=== PATIENT | female | born 1945 | race Two or more races ===

== ENCOUNTER 2017-03-13 18:00 | Inpatient (IN) | payer MEDICAID, MEDICARE, OTHER ==
[~2017-03-13] VITALS: Ht 154.9 cm; Wt 36.0 kg
[2017-03-13] MEDS ORDERED: AZITHROMYCIN IV 500 MG in IV DEXTROSE 5% 250 ML IV ONE (19:00)
[2017-03-13 19:34] LABS: CARBON DIOXIDE 24 mmol/L (21-32); CHLORIDE 94 mmol/L (98-107); GLUCOSE 97 mg/dL (74-106); POTASSIUM 4.7 mmol/L (3.5-5.1); UREA NITROGEN, BLOOD 32 mg/dL (7-18)
[2017-03-13 19:38] LABS: BASOPHILS # (AUTO) 0.1 K/uL (0.0-8.0); BASOPHILS % (AUTO) 0.4 % (0.0-2.0); EOSINOPHILS # (AUTO) 0.1 K/uL (0.0-0.7); EOSINOPHILS % (AUTO) 0.3 % (0.0-7.0); HEMATOCRIT 37.5 % (37-47); HEMOGLOBIN 12.1 G/DL (12.0-16.0); LYMPHOCYTES # (AUTO) 0.9 K/UL (0.8-4.8); LYMPHOCYTES % (AUTO) 4.2 % (20.5-51.5); MEAN CORPUSCULAR HEMOGLOBIN 27.7 UUG (27.0-31.0); MEAN CORPUSCULAR HGB CONC 32 g/dL (32.0-37.0); MEAN CORPUSCULAR VOLUME 85.9 FL (81.0-99.0); MONOCYTES # (AUTO) 0.4 K/UL (0.1-1.30); MONOCYTES % (AUTO) 2.1 % (0.0-11.0); NEUTROPHILS # (AUTO) 19.3 K/UL (1.8-8.9); PLATELET COUNT (AUTO) 508 K/UL (150-450); RED BLOOD CELL COUNT(AUTO) 4.36 MIL/UL (4.2-5.4)
[2017-03-13] MEDS ORDERED: AZITHROMYCIN 500 MG VIAL IV ONE (19:39)
[2017-03-13 19:45] LABS: WHITE BLOOD COUNT (AUTO) 20.8 K/UL (4.0-11.2)
[2017-03-13 19:50] LABS: ALANINE AMINOTRANSFERASE 24 U/L (14-59); ALKALINE PHOSPHATASE 141 U/L (50-136); ASPARTATE AMINOTRANSFERASE 27 U/L (15-37); BILIRUBIN,DIRECT 0.2 mg/dL (0.0-0.2); BILIRUBIN,TOTAL 0.5 mg/dL (0.2-1.0); TOTAL PROTEIN, SERUM 6.9 g/dL (6.4-8.2)
[2017-03-13 20:19] LABS: BAND % (MANUAL) 13 % (0-10); LYMPHOCYTES % (MANUAL) 7 % (20-40); MONOCYTES % (MANUAL) 2 % (2-10); NEUTROPHILS % (MANUAL) 78 % (42-75)
[2017-03-13] MEDS ORDERED: IV NORMAL SALINE 250 ML IV ONE (22:10)
[2017-03-13] MEDS ORDERED: IOHEXOL 350 100 ML INFUS..BTL ONE (22:10)
[2017-03-13] MEDS ORDERED: NORMAL SALINE FLUSH 10 ML DISP.SYRIN ONE (22:10)
[2017-03-13] MEDS ORDERED: ENOXAPARIN SODIUM 40 MG/0.4 ML DISP.SYRIN SQ ONE ×2 (22:15→22:52)
[2017-03-13 22:55] VITALS: BP 94/47
[2017-03-14] VITALS: BP 97/52
[2017-03-14] MEDS ORDERED: LEVOFLOXACIN 500 MG/D5W 500 MG in PREMIXED 1 EACH IV SCH (01:00)
[2017-03-14] MEDS: IV D5/ 0.9% NACL 1,000 ML IV PRN ×2 (01:22→20:05)
[2017-03-14] MEDS ORDERED: LEVOFLOXACIN 500 MG/D5W 100 ML ONE (02:12)
[2017-03-14 04:00] VITALS: BP 92/50
[2017-03-14 07:16] LABS: ALANINE AMINOTRANSFERASE 22 U/L (14-59); ALKALINE PHOSPHATASE 131 U/L (50-136); ASPARTATE AMINOTRANSFERASE 29 U/L (15-37); BILIRUBIN,TOTAL 0.4 mg/dL (0.2-1.0); CARBON DIOXIDE 23 mmol/L (21-32); CHLORIDE 96 mmol/L (98-107); CREATININE 0.9 mg/dL (0.6-1.3); GLUCOSE 145 mg/dL (74-106); MAGNESIUM 2.2 mg/dL (1.8-2.4); PHOSPHOROUS 3.2 mg/dL (2.5-4.9); POTASSIUM 4.2 mmol/L (3.5-5.1); UREA NITROGEN, BLOOD 29 mg/dL (7-18)
[2017-03-14 07:49] LABS: BASOPHILS % (AUTO) 0.1 % (0.0-2.0); EOSINOPHILS # (AUTO) 0.1 K/uL (0.0-0.7); EOSINOPHILS % (AUTO) 0.6 % (0.0-7.0); HEMATOCRIT 33.8 % (37-47); HEMOGLOBIN 11.2 G/DL (12.0-16.0); MEAN CORPUSCULAR HEMOGLOBIN 28.5 UUG (27.0-31.0); MEAN CORPUSCULAR HGB CONC 33 g/dL (32.0-37.0); MEAN CORPUSCULAR VOLUME 86.2 FL (81.0-99.0); MONOCYTES # (AUTO) 0.7 K/UL (0.1-1.30); MONOCYTES % (AUTO) 3.9 % (0.0-11.0); NEUTROPHILS # (AUTO) 15.2 K/UL (1.8-8.9); NEUTROPHILS % (AUTO) 89.4 % (38.5-71.5); PLATELET COUNT (AUTO) 480 K/UL (150-450); RED BLOOD CELL COUNT(AUTO) 3.93 MIL/UL (4.2-5.4)
[2017-03-14] MEDS ORDERED: ACETAMINOPHEN 325 MG TABLET PO PRN (09:15)
[2017-03-14] MEDS ORDERED: ENOXAPARIN SODIUM 40 MG/0.4 ML DISP.SYRIN SQ SCH (09:30)
[2017-03-14] MEDS ORDERED: LEVO50TA8 PO (10:01)
[2017-03-14 10:45] LABS: BAND % (MANUAL) 9 % (0-10); EOSINOPHILS % (MANUAL) 1 % (0-8); LYMPHOCYTES % (MANUAL) 7 % (20-40); METAMYELOCYTES % 1 % (0-1); MONOCYTES % (MANUAL) 4 % (2-10); NEUTROPHILS % (MANUAL) 78 % (42-75)
[2017-03-14 10:50] LABS: CARBON DIOXIDE 26 mmol/L (21-32); CHLORIDE 97 mmol/L (98-107); CREATININE 0.8 mg/dL (0.6-1.3); GLUCOSE 135 mg/dL (74-106); MAGNESIUM 2.2 mg/dL (1.8-2.4); PHOSPHOROUS 3.2 mg/dL (2.5-4.9); POTASSIUM 4.5 mmol/L (3.5-5.1); UREA NITROGEN, BLOOD 27 mg/dL (7-18); URIC ACID 3.9 mg/dL (2.6-6.0)
[2017-03-14] MEDS: ENOXAPARIN SODIUM 40 MG/0.4 ML DISP.SYRIN SQ SCH ×2 (10:54→20:52)
[2017-03-14 10:58] LABS: THYROID STIMULATING HORMONE 10.067 mIU/mL (0.358-3.740)
[2017-03-14] MEDS: BENZOCAINE/MENTH/CETYLPYRD LOZENGE MM PRN (10:59)
[2017-03-14 11:33] VITALS: BP 116/52
[2017-03-14 15:52] VITALS: BP 95/51
[2017-03-15] MEDS: LEVOFLOXACIN 250MG /D5W 250 MG in PREMIXED 1 EACH IV SCH (01:22)
[2017-03-15] MEDS: PANTOPRAZOLE SODIUM 40 MG TABLET.DR PO SCH (06:08)
[2017-03-15] MEDS: LEVOTHYROXINE SODIUM 50 MCG TABLET PO SCH (06:08)
[2017-03-15 06:36] LABS: CARBON DIOXIDE 23 mmol/L (21-32); CHLORIDE 103 mmol/L (98-107); CREATININE 0.8 mg/dL (0.6-1.3); GLUCOSE 106 mg/dL (74-106); PHOSPHOROUS 3.3 mg/dL (2.5-4.9); POTASSIUM 3.8 mmol/L (3.5-5.1); UREA NITROGEN, BLOOD 19 mg/dL (7-18)
[2017-03-15 06:58] LABS: EOSINOPHILS # (AUTO) 0.2 K/uL (0.0-0.7); EOSINOPHILS % (AUTO) 1.6 % (0.0-7.0); HEMATOCRIT 34.6 % (37-47); HEMOGLOBIN 11.2 G/DL (12.0-16.0); LYMPHOCYTES # (AUTO) 1.1 K/UL (0.8-4.8); LYMPHOCYTES % (AUTO) 8.2 % (20.5-51.5); MEAN CORPUSCULAR HEMOGLOBIN 28.3 UUG (27.0-31.0); MEAN CORPUSCULAR HGB CONC 32 g/dL (32.0-37.0); MEAN CORPUSCULAR VOLUME 87.3 FL (81.0-99.0); MONOCYTES # (AUTO) 0.7 K/UL (0.1-1.30); MONOCYTES % (AUTO) 5.3 % (0.0-11.0); NEUTROPHILS # (AUTO) 10.9 K/UL (1.8-8.9); NEUTROPHILS % (AUTO) 84.9 % (38.5-71.5); PLATELET COUNT (AUTO) 472 K/UL (150-450); RED BLOOD CELL COUNT(AUTO) 3.97 MIL/UL (4.2-5.4); WHITE BLOOD COUNT (AUTO) 12.9 K/UL (4.0-11.2)
[2017-03-15] MEDS: ENOXAPARIN SODIUM 40 MG/0.4 ML DISP.SYRIN SQ SCH ×2 (08:42→21:17)
[2017-03-15 12:06] VITALS: BP 90/52
[2017-03-15] MEDS: IV D5/ 0.9% NACL 1,000 ML IV PRN (12:17)
[2017-03-15 16:04] VITALS: BP 109/65
[2017-03-15 20:00] VITALS: BP 105/64
[2017-03-16] VITALS: BP 100/52
[2017-03-16] MEDS: NYSTATIN SUSPENSION 5 ML LIQUID UDC PO SCH ×3 (00:43→12:06)
[2017-03-16] MEDS: LEVOFLOXACIN 250MG /D5W 250 MG in PREMIXED 1 EACH IV SCH (00:44)
[2017-03-16 04:00] VITALS: BP 96/57
[2017-03-16] MEDS: LEVOTHYROXINE SODIUM 50 MCG TABLET PO SCH (05:57)
[2017-03-16] MEDS: PANTOPRAZOLE SODIUM 40 MG TABLET.DR PO SCH (05:57)
[2017-03-16 07:07] LABS: BASOPHILS % (AUTO) 0.2 % (0.0-2.0); EOSINOPHILS # (AUTO) 0.2 K/uL (0.0-0.7); EOSINOPHILS % (AUTO) 2.1 % (0.0-7.0); HEMATOCRIT 33.7 % (31.2-41.9); HEMOGLOBIN 11.1 g/dL (10.9-14.3); LYMPHOCYTES # (AUTO) 1.3 K/uL (20.0-40.0); LYMPHOCYTES % (AUTO) 11.3 % (20.5-51.5); MEAN CORPUSCULAR HEMOGLOBIN 28.8 uug (24.7-32.8); MEAN CORPUSCULAR HGB CONC 33 g/dL (32.3-35.6); MEAN CORPUSCULAR VOLUME 87.3 fL (75.5-95.3); MONOCYTES # (AUTO) 0.7 K/uL (2.0-10.0); NEUTROPHILS # (AUTO) 9.4 K/uL (1.8-8.9); NEUTROPHILS % (AUTO) 80.4 % (38.5-71.5); PLATELET COUNT (AUTO) 435 K/uL (179-408); RED BLOOD CELL COUNT(AUTO) 3.86 MIL/uL (3.63-4.92); WHITE BLOOD COUNT (AUTO) 11.7 K/uL (3.8-11.8)
[2017-03-16 07:10] LABS: CARBON DIOXIDE 23 mmol/L (21-32); CHLORIDE 105 mmol/L (98-107); GLUCOSE 112 mg/dL (74-106); POTASSIUM 3.8 mmol/L (3.5-5.1); UREA NITROGEN, BLOOD 23 mg/dL (7-18)
[2017-03-16] MEDS: ENOXAPARIN SODIUM 40 MG/0.4 ML DISP.SYRIN SQ SCH (08:08)
[2017-03-16] MEDS: BOOST PLUS 237 ML LIQUID (VERY VANILLA) PO SCH ×2 (08:12→12:07)
[2017-03-16] MEDS: BENZOCAINE/MENTH/CETYLPYRD LOZENGE MM PRN (09:10)
[2017-03-16] MEDS ORDERED: RIVAROXABAN 15 MG TABLET PO SCH (10:45)
[2017-03-16 11:10] VITALS: BP 100/59
[2017-03-16] MEDS ORDERED: RIVA15TA PO (12:12)
[2017-03-16] MEDS ORDERED: LEVO75TA PO (12:12)
[2017-03-16] MEDS ORDERED: LEVO500T2 PO (12:12)
[2017-03-16 15:23] VITALS: BP 108/51
== END 2017-03-16 16:30 | disposition home or self-care (01) | DRG 871 ==
LOC: ER 18:03 → TELE 22:39
PROVIDERS: ADMIT Internal Medicine; ATTEND Internal Medicine
DX: A41.9 Sepsis, unspecified organism (principal); J15.9 Unspecified bacterial pneumonia; I26.99 Other pulmonary embolism without acute cor pulmonale; E43 Unspecified severe protein-calorie malnutrition; J47.0 Bronchiectasis with acute lower respiratory infection; I82.432 Acute embolism and thrombosis of left popliteal vein; M06.9 Rheumatoid arthritis, unspecified; D64.9 Anemia, unspecified; E87.1 Hypo-osmolality and hyponatremia; Z68.1 Body mass index [BMI] 19.9 or less, adult; E03.9 Hypothyroidism, unspecified; E86.9 Volume depletion, unspecified; R63.4 Abnormal weight loss; I25.10 Atherosclerotic heart disease of native coronary artery without angina pectoris
CPT/HCPCS: 36415; 70030-TC; 71010; 71275; 82533; 83605; 83735; 84100; 84300; 84443; 84550; 85025; 87040; 93005; A4663; J0456; J1650; J1956; J3490; J7042; J7050; J7060; Q9967

== ENCOUNTER 2017-10-07 11:24 | Inpatient (IN) | payer OTHER, MEDICAID ==
[~2017-10-07] VITALS: Ht 152.4 cm; Wt 44.0 kg
[~2017-10-07 11:24] MED LIST: LEVO500T2 PO; LEVO75TA PO; RIVA15TA PO
[2017-10-07] MEDS ORDERED: RIVA10TA PO (11:35)
[2017-10-07] MEDS ORDERED: VITAMIN B12 PO (11:35)
[2017-10-07] MEDS ORDERED: IV NORMAL SALINE 1000 ML BAG IV ONE ×2 (12:00→15:15)
[2017-10-07] MEDS ORDERED: LEVOFLOXACIN 500 MG/D5W 100ML PIGGYBACK IV ONE (12:00)
[2017-10-07] MEDS ORDERED: PIPERACILLIN SODIUM/TAZOBACTAM 3.375 G in IV DEXTROSE 5% 50 ML IV ONE (12:00)
[2017-10-07] MEDS ORDERED: LEVOFLOXACIN 500 MG/D5W 100 ML ONE (12:06)
[2017-10-07] MEDS ORDERED: PIPERACILLIN/TAZOBACTAM/D5W 50 ML IV ONE (12:06)
[2017-10-07 12:24] LABS: BASOPHILS # (AUTO) 0.1 K/uL (0.0-8.0); BASOPHILS % (AUTO) 0.2 % (0.0-2.0); EOSINOPHILS # (AUTO) 0.1 K/uL (0.0-0.7); EOSINOPHILS % (AUTO) 0.2 % (0.0-7.0); HEMATOCRIT 32.8 % (31.2-41.9); HEMOGLOBIN 10.7 g/dL (10.9-14.3); LYMPHOCYTES # (AUTO) 1.2 K/uL (20.0-40.0); LYMPHOCYTES % (AUTO) 4.3 % (20.5-51.5); MEAN CORPUSCULAR HEMOGLOBIN 23.6 uug (24.7-32.8); MEAN CORPUSCULAR HGB CONC 33 g/dL (32.3-35.6); MEAN CORPUSCULAR VOLUME 72.5 fL (75.5-95.3); MONOCYTES # (AUTO) 1.1 K/uL (2.0-10.0); MONOCYTES % (AUTO) 3.8 % (0.0-11.0); NEUTROPHILS % (AUTO) 91.5 % (38.5-71.5); PLATELET COUNT (AUTO) 434 K/uL (179-408); RED BLOOD CELL COUNT(AUTO) 4.52 MIL/uL (3.63-4.92); WHITE BLOOD COUNT (AUTO) 28.5 K/uL (3.8-11.8)
[2017-10-07 12:28] LABS: CARBON DIOXIDE 24 mmol/L (21-32); CHLORIDE 97 mmol/L (98-107); CREATININE 0.7 mg/dL (0.6-1.3); GLUCOSE 126 mg/dL (74-106); POTASSIUM 3.3 mmol/L (3.5-5.1); UREA NITROGEN, BLOOD 23 mg/dL (7-18)
[2017-10-07 12:41] LABS: ALANINE AMINOTRANSFERASE 29 U/L (14-59); ALKALINE PHOSPHATASE 183 U/L (50-136); ASPARTATE AMINOTRANSFERASE 37 U/L (15-37); BILIRUBIN,DIRECT 0.4 mg/dL (0.0-0.2); BILIRUBIN,TOTAL 0.8 mg/dL (0.2-1.0); TOTAL PROTEIN, SERUM 6.5 g/dL (6.4-8.2)
--- NOTE | 2017-10-07 13:10 | NUR ---
HOSPITAL TRAY AT BEDSIDE. PT FAMILY MEMBRE HELPING THE PT.
[2017-10-07] MEDS ORDERED: SWABABLE VALVE TRANSFER SET EA MC ONE (14:05)
[2017-10-07] MEDS ORDERED: IV NORMAL SALINE 100 ML ONE (14:05)
[2017-10-07] MEDS ORDERED: IOHEXOL 350 100 ML INFUS..BTL ONE (14:05)
[2017-10-07] MEDS ORDERED: NORMAL SALINE FLUSH 10 ML DISP.SYRIN ONE (14:05)
--- NOTE | 2017-10-07 15:50 | NUR ---
Pt trans to tele floor, NAD noted.
[2017-10-07 16:34] VITALS: BP 93/45
[2017-10-07 17:18] VITALS: BP 98/60
[2017-10-07] MEDS ORDERED: ALBUTEROL SULFATE 2.5 MG/ 0.5 ML NEBU NEB PRN (18:45)
[2017-10-07] MEDS ORDERED: PRAMOXINE RC PRN (18:45)
[2017-10-07] MEDS ORDERED: ACETAMINOPHEN 325 MG TABLET PO PRN (18:45)
[2017-10-07] MEDS ORDERED: ONDANSETRON 4 MG/2 ML VIAL IV PRN (18:45)
[2017-10-07] MEDS ORDERED: HYDROCORTISONE RC PRN (18:45)
[2017-10-07] MEDS ORDERED: ZOLPIDEM 5 MG TABLET PO PRN (19:45)
[2017-10-07 20:01] VITALS: BP 98/60
[2017-10-07] MEDS: RIVAROXABAN 10 MG TABLET PO SCH (20:36)
[2017-10-08] VITALS (7 sets, daily range): BP systolic 92–102; BP diastolic 41–58
[2017-10-08] MEDS: LEVOTHYROXINE SODIUM 75 MCG TABLET PO SCH (06:11)
[2017-10-08 06:19] LABS: BASOPHILS % (AUTO) 0.2 % (0.0-2.0); EOSINOPHILS # (AUTO) 0.2 K/uL (0.0-0.7); HEMATOCRIT 33.5 % (31.2-41.9); HEMOGLOBIN 10.7 g/dL (10.9-14.3); LYMPHOCYTES # (AUTO) 1.4 K/uL (20.0-40.0); LYMPHOCYTES % (AUTO) 7.3 % (20.5-51.5); MEAN CORPUSCULAR HEMOGLOBIN 23.5 uug (24.7-32.8); MEAN CORPUSCULAR HGB CONC 32 g/dL (32.3-35.6); MEAN CORPUSCULAR VOLUME 73.7 fL (75.5-95.3); MONOCYTES # (AUTO) 0.8 K/uL (2.0-10.0); MONOCYTES % (AUTO) 4.5 % (0.0-11.0); NEUTROPHILS # (AUTO) 16.6 K/uL (1.8-8.9); PLATELET COUNT (AUTO) 360 K/uL (179-408); RED BLOOD CELL COUNT(AUTO) 4.54 MIL/uL (3.63-4.92)
[2017-10-08 06:23] LABS: CARBON DIOXIDE 23 mmol/L (21-32); CHLORIDE 103 mmol/L (98-107); CREATININE 0.7 mg/dL (0.6-1.3); GLUCOSE 110 mg/dL (74-106); PHOSPHOROUS 2.5 mg/dL (2.5-4.9); POTASSIUM 3.7 mmol/L (3.5-5.1); UREA NITROGEN, BLOOD 12 mg/dL (7-18)
--- NOTE | 2017-10-08 06:47 | NUR ---
Patient slept through the night. Denies pain/discomfort. All needs attended to. Vital signs stable.
--- NOTE | 2017-10-08 07:20 | NUR ---
received report from police shift commander nurse, patient in bed, no distress noted, bed in low positoin, side rails up x2.
[2017-10-08] MEDS: CYANOCOBALAMIN 1,000 MCG TABLET PO SCH (09:22)
[2017-10-08] MEDS: LEVOFLOXACIN 750MG/D5W 750 MG in PREMIXED 1 EACH IV SCH (13:14)
[2017-10-08] MEDS ORDERED: SHARK LIVER OIL/PETROLAT OINT 60 GM TUBE RC PRN (13:30)
--- NOTE | 2017-10-08 14:42 | NUR ---
WOUND CARE CONSULT: PT PRESENTS WITH RECTAL PROLAPSE. SKIN IS INTACT. PT ABLE TO REPOSITION IN BED. DEFER TO MD FOR PROLAPSE. WILL SEE PRN.
[2017-10-08] MEDS: RIVAROXABAN 10 MG TABLET PO SCH (17:53)
--- NOTE | 2017-10-08 19:04 | NUR ---
Patient has been cooperative with care, patient had a pt consult, ot consult and wound consult. All recommendations have been noted in chart. Currently patient in bed, no distress noted, bed in low position, side rails up x2.
[2017-10-09 03:43] VITALS: BP 80/44
[2017-10-09 04:55] VITALS: BP 100/59
[2017-10-09 06:01] LABS: BASOPHILS % (AUTO) 0.3 % (0.0-2.0); RED BLOOD CELL COUNT(AUTO) 4.29 MIL/uL (3.63-4.92)
[2017-10-09] MEDS: LEVOTHYROXINE SODIUM 75 MCG TABLET PO SCH (06:12)
[2017-10-09 06:18] LABS: ALANINE AMINOTRANSFERASE 28 U/L (14-59); ALKALINE PHOSPHATASE 147 U/L (50-136); ASPARTATE AMINOTRANSFERASE 43 U/L (15-37); BILIRUBIN,TOTAL 0.3 mg/dL (0.2-1.0); CARBON DIOXIDE 26 mmol/L (21-32); CHLORIDE 105 mmol/L (98-107); CREATININE 0.7 mg/dL (0.6-1.3); GLUCOSE 107 mg/dL (74-106); PHOSPHOROUS 2.9 mg/dL (2.5-4.9); POTASSIUM 4.3 mmol/L (3.5-5.1); TOTAL PROTEIN, SERUM 5.4 g/dL (6.4-8.2); UREA NITROGEN, BLOOD 16 mg/dL (7-18)
[2017-10-09 06:45] LABS: EOSINOPHILS # (AUTO) 0.2 K/uL (0.0-0.7); EOSINOPHILS % (AUTO) 1.6 % (0.0-7.0); HEMATOCRIT 31.7 % (31.2-41.9); HEMOGLOBIN 10.1 g/dL (10.9-14.3); LYMPHOCYTES # (AUTO) 1.4 K/uL (20.0-40.0); MEAN CORPUSCULAR HEMOGLOBIN 23.6 uug (24.7-32.8); MEAN CORPUSCULAR HGB CONC 32 g/dL (32.3-35.6); MEAN CORPUSCULAR VOLUME 73.8 fL (75.5-95.3); MONOCYTES # (AUTO) 0.7 K/uL (2.0-10.0); MONOCYTES % (AUTO) 5.9 % (0.0-11.0); NEUTROPHILS # (AUTO) 9.2 K/uL (1.8-8.9); NEUTROPHILS % (AUTO) 80.2 % (38.5-71.5); WHITE BLOOD COUNT (AUTO) 11.4 K/uL (3.8-11.8)
[2017-10-09 06:46] LABS: PLATELET COUNT (AUTO) 474 K/uL (179-408)
[2017-10-09] MEDS: CYANOCOBALAMIN 1,000 MCG TABLET PO SCH (08:35)
[2017-10-09 08:47] LABS: EOSINOPHILS % (MANUAL) 4 % (0-8); LYMPHOCYTES % (MANUAL) 9 % (20-40); METAMYELOCYTES % 1 % (0-1); MONOCYTES % (MANUAL) 6 % (2-10); MYELOCYTES % 1 % (0-0); NEUTROPHILS % (MANUAL) 79 % (42-75)
[2017-10-09] MEDS: LEVOFLOXACIN 750MG/D5W 750 MG in PREMIXED 1 EACH IV SCH (11:26)
[2017-10-09 11:34] VITALS: BP 104/58
[2017-10-09 15:38] VITALS: BP 95/50
[2017-10-09] MEDS: RIVAROXABAN 10 MG TABLET PO SCH (17:58)
--- NOTE | 2017-10-09 18:56 | NUR ---
PATIENT HAS BEEN COOPERATIVE WITH CARE THROUGHOUT THE SHIFT. PATIENT IN NO DISTRESS AT THIS TIME, BED IN LOW POSITION, SIDE RAILS UP X2, BED ALARM ON. STOOL SAMPLE SENT TO LAB.
[2017-10-09 19:00] VITALS: BP 98/50
[2017-10-09 20:00] VITALS: BP 98/50
[2017-10-10 04:00] VITALS: BP 120/51
[2017-10-10 06:43] LABS: BASOPHILS % (AUTO) 0.3 % (0.0-2.0); EOSINOPHILS # (AUTO) 0.2 K/uL (0.0-0.7); EOSINOPHILS % (AUTO) 1.7 % (0.0-7.0); HEMATOCRIT 32.9 % (31.2-41.9); HEMOGLOBIN 10.6 g/dL (10.9-14.3); LYMPHOCYTES # (AUTO) 1.3 K/uL (20.0-40.0); LYMPHOCYTES % (AUTO) 11.6 % (20.5-51.5); MEAN CORPUSCULAR HEMOGLOBIN 23.7 uug (24.7-32.8); MEAN CORPUSCULAR HGB CONC 32 g/dL (32.3-35.6); MEAN CORPUSCULAR VOLUME 73.6 fL (75.5-95.3); MONOCYTES # (AUTO) 0.6 K/uL (2.0-10.0); MONOCYTES % (AUTO) 5.4 % (0.0-11.0); NEUTROPHILS # (AUTO) 9.2 K/uL (1.8-8.9); PLATELET COUNT (AUTO) 519 K/uL (179-408); RED BLOOD CELL COUNT(AUTO) 4.47 MIL/uL (3.63-4.92); WHITE BLOOD COUNT (AUTO) 11.4 K/uL (3.8-11.8)
[2017-10-10 06:58] LABS: IRON, SERUM 37 ug/dL (50-175)
[2017-10-10] MEDS: LEVOTHYROXINE SODIUM 75 MCG TABLET PO SCH (06:58)
--- NOTE | 2017-10-10 07:20 | NUR ---
RECEIVED REPORT FROM HIDE SORTER NURSE, PATIENT IN BED AWAKE, NO DISTRESS NOTED, BED IN LOW POSITION, SIDE RAILS UP X2. BED ALARM ON.
[2017-10-10 07:25] LABS: ALANINE AMINOTRANSFERASE 24 U/L (14-59); ALKALINE PHOSPHATASE 127 U/L (50-136); ASPARTATE AMINOTRANSFERASE 33 U/L (15-37); BILIRUBIN,TOTAL 0.3 mg/dL (0.2-1.0); CARBON DIOXIDE 28 mmol/L (21-32); CHLORIDE 105 mmol/L (98-107); CREATININE 0.7 mg/dL (0.6-1.3); FERRITIN 115 ng/mL (8-252); GLUCOSE 94 mg/dL (74-106); PHOSPHOROUS 3.5 mg/dL (2.5-4.9); POTASSIUM 4.7 mmol/L (3.5-5.1); TOTAL PROTEIN, SERUM 5.3 g/dL (6.4-8.2); UREA NITROGEN, BLOOD 14 mg/dL (7-18)
[2017-10-10] MEDS: CYANOCOBALAMIN 1,000 MCG TABLET PO SCH (08:31)
[2017-10-10 11:47] VITALS: BP 106/57
[2017-10-10] MEDS: LEVOFLOXACIN 750MG/D5W 750 MG in PREMIXED 1 EACH IV SCH (13:41)
[2017-10-10] MEDS ORDERED: LEVO500T2 PO (14:00)
[2017-10-10 16:17] VITALS: BP 97/61
--- NOTE | 2017-10-10 17:12 | NUR ---
patient was given discharge instructions, iv removed, and pictures taken. Report called to Jose at [email or web address]. no distress noted at discharge, all belongings sent with patient.
== END 2017-10-10 17:27 | DRG 871 ==
LOC: ER 11:27 → TELE 15:26 → MED 10-09 12:43
PROVIDERS: ADMIT Internal Medicine; ATTEND Internal Medicine
DX: A41.9 Sepsis, unspecified organism (principal); J69.0 Pneumonitis due to inhalation of food and vomit; E43 Unspecified severe protein-calorie malnutrition; Z68.1 Body mass index [BMI] 19.9 or less, adult; Z86.711 Personal history of pulmonary embolism; Z79.01 Long term (current) use of anticoagulants; I27.21 Secondary pulmonary arterial hypertension; I25.10 Atherosclerotic heart disease of native coronary artery without angina pectoris; M06.9 Rheumatoid arthritis, unspecified; E03.9 Hypothyroidism, unspecified; Z86.19 Personal history of other infectious and parasitic diseases; I10 Essential (primary) hypertension; J47.9 Bronchiectasis, uncomplicated; I11.9 Hypertensive heart disease without heart failure
CPT/HCPCS: 36415; 70030-TC; 71275; 83550; 83605; 83735; 84100; 85025; 85730; 87040; 93005; 97110; 97116; 97165; 97530; A4663; A9150; J1956; J2543; J3490; J7030; J7040; Q9967

== ENCOUNTER 2018-06-08 11:59 | Inpatient (IN) | payer OTHER, MEDICAID ==
[~2018-06-08] VITALS: Ht 147.3 cm; Wt 39.9 kg
[~2018-06-08 11:59] MED LIST changes: +RIVA10TA PO; -RIVA15TA PO; +VITAMIN B12 PO
[2018-06-08] MEDS ORDERED: IV NORMAL SALINE 500 ML BAG IV ONE (12:15)
--- NOTE | 2018-06-08 12:28 | NUR ---
PT IS IN ROOM #1B. DR SAHNI EVALUATED THE PT.
[2018-06-08 12:36] LABS: BASOPHILS % (AUTO) 0.1 % (0.0-2.0); EOSINOPHILS # (AUTO) 0.1 K/uL (0.0-0.7); EOSINOPHILS % (AUTO) 0.3 % (0.0-7.0); HEMOGLOBIN 13.2 g/dL (10.9-14.3); LYMPHOCYTES # (AUTO) 0.8 K/uL (20.0-40.0); LYMPHOCYTES % (AUTO) 4.5 % (20.5-51.5); MEAN CORPUSCULAR HEMOGLOBIN 26.1 uug (24.7-32.8); MEAN CORPUSCULAR HGB CONC 32 g/dL (32.3-35.6); MEAN CORPUSCULAR VOLUME 81.2 fL (75.5-95.3); MONOCYTES # (AUTO) 0.5 K/uL (2.0-10.0); NEUTROPHILS # (AUTO) 16.5 K/uL (1.8-8.9); NEUTROPHILS % (AUTO) 92.1 % (38.5-71.5); PLATELET COUNT (AUTO) 410 K/uL (179-408); RED BLOOD CELL COUNT(AUTO) 5.05 MIL/uL (3.63-4.92)
[2018-06-08 12:50] LABS: CARBON DIOXIDE 23 mmol/L (21-32); CHLORIDE 101 mmol/L (98-107); CREATININE 0.8 mg/dL (0.6-1.3); GLUCOSE 140 mg/dL (74-106); POTASSIUM 3.5 mmol/L (3.5-5.1); UREA NITROGEN, BLOOD 25 mg/dL (7-18)
[2018-06-08 12:55] LABS: ALANINE AMINOTRANSFERASE 31 U/L (14-59); ALKALINE PHOSPHATASE 182 U/L (50-136); ASPARTATE AMINOTRANSFERASE 40 U/L (15-37); BILIRUBIN,DIRECT 0.3 mg/dL (0.0-0.2); BILIRUBIN,TOTAL 0.8 mg/dL (0.2-1.0); TOTAL PROTEIN, SERUM 6.7 g/dL (6.4-8.2)
[2018-06-08] MEDS ORDERED: HYDR30CR77 RC (12:59)
[2018-06-08] MEDS ORDERED: GLUC-179 PO (12:59)
[2018-06-08 13:06] LABS: BAND % (MANUAL) 4 % (0-10); LYMPHOCYTES % (MANUAL) 8 % (20-40); MONOCYTES % (MANUAL) 2 % (2-10); NEUTROPHILS % (MANUAL) 86 % (42-75)
[2018-06-08 13:31] LABS: *BILIRUBIN,URIN 1+ (NEGATIVE); *BLOOD, URINE NEGATIVE (NEGATIVE); *CLARITY,URINE CLEAR (CLEAR); *COLOR,URINE YELLOW (YELLOW); *KETONES,URINE NEGATIVE (NEGATIVE); *UROBILINOGEN,URINE 0.2 E.U./dl (NORMAL); LEUKOCYTE ESTERASE ,URINE NEGATIVE (NEGATIVE); NITRITE, URINE NEGATIVE (NEGATIVE); UGLUCOSE NEGATIVE (NEGATIVE)
[2018-06-08 13:36] LABS: BACTERIA,URINE FEW /HPF (NONE SEEN); RBC,URINE 0-3 /HPF (0-3); SQUAMOUS EPITHELIAL CELL,UR FEW /HPF (NONE SEEN); WBC,URINE 0-3 /HPF (0-3)
[2018-06-08] MEDS: CEFTRIAXONE 1 G in IV DEXTROSE 5% 50 ML IV ONE ×2 (13:58→14:56)
[2018-06-08] MEDS ORDERED: AZITHROMYCIN IV 500 MG in IV DEXTROSE 5% 250 ML IV ONE (14:00)
[2018-06-08] MEDS ORDERED: CEFTRIAXONE 1 G VIAL ONE (14:03)
[2018-06-08] MEDS ORDERED: AZITHROMYCIN 500 MG VIAL IV ONE (14:04)
--- NOTE | 2018-06-08 15:28 | NUR ---
REPORT WAS GIVEN TO PRODUCTION MANAGER. PT WAS TRANSFERED TO TELEMETRY ROOM #205.
[2018-06-08 15:55] VITALS: BP 91/54
--- NOTE | 2018-06-08 16:59 | NUR ---
SBAR report received from ER nurse. Pt received. No acute distress evident at this time. VSS 91/54, 67, 99% RA, no SOB, discomfort reported only related to uterine prolapse. Called and left message for [facility] health information coder MD regarding admission and medication recon orders. Spoke with daughter, Louise, received contact info. IV 20 willy in left AC intact, heplock. Belongings accounted for. All safety and comfort measures in place at this time. Bed in locked and lowest position with side rails up x2, bed alarm on. Call light and phone placed within reach. Will continue to monitor.
--- NOTE | 2018-06-08 17:35 | NUR ---
Third attempt made to contact assistant commissioner [facility] MD for admitting orders and medication recon. Monitoring Pt for safety at this time, all needs met. Will continue and endorse to on coming nurse.
[2018-06-08] MEDS ORDERED: HYDROCODONE/APAP 5-325MG TABLET PO PRN (17:45)
[2018-06-08] MEDS ORDERED: ALBUTEROL SULFATE 1.25 MG/3 ML NEBU NEB PRN (17:45)
[2018-06-08] MEDS ORDERED: ACETAMINOPHEN 325 MG TABLET PO PRN (17:45)
[2018-06-08] MEDS ORDERED: ZOLPIDEM 5 MG TABLET PO PRN (17:45)
[2018-06-08] MEDS ORDERED: Z GUARD REMEDY PASTE 57 GM TUBE TOP PRN (17:45)
[2018-06-08] MEDS ORDERED: MAGNESIUM HYDROXIDE 30 ML LIQUID UDC PO PRN (17:45)
[2018-06-08] MEDS ORDERED: ONDANSETRON 4 MG/2 ML VIAL IV PRN (17:45)
--- NOTE | 2018-06-08 19:40 | NUR ---
RECEIVED PATIENT AWAKE AND ALERT IN BED. IN NO ACUTE DISTRESS. HAS NO COMPLAINTS OF PAIN OR SOB. IV ON THE RIGHT AC IS INTACT AND PATENT. SAFETY MEASURES GIVEN. BED IS LOW AND LOCKED, CALL LIGHT WITHIN REACH. WILL CONTINUE TO MONITOR.
[2018-06-08 20:00] VITALS: BP 90/51
[2018-06-08] MEDS: ENOXAPARIN SODIUM 40 MG/0.4 ML DISP.SYRIN SQ SCH (20:33)
[2018-06-09 00:27] VITALS: BP 92/52
[2018-06-09 04:00] VITALS: BP 92/50
[2018-06-09 06:07] LABS: BASOPHILS % (AUTO) 0.2 % (0.0-2.0); EOSINOPHILS # (AUTO) 0.1 K/uL (0.0-0.7); EOSINOPHILS % (AUTO) 0.7 % (0.0-7.0); HEMATOCRIT 35.7 % (31.2-41.9); HEMOGLOBIN 11.8 g/dL (10.9-14.3); LYMPHOCYTES # (AUTO) 1.1 K/uL (20.0-40.0); LYMPHOCYTES % (AUTO) 10.6 % (20.5-51.5); MEAN CORPUSCULAR HEMOGLOBIN 26.7 uug (24.7-32.8); MEAN CORPUSCULAR HGB CONC 33 g/dL (32.3-35.6); MEAN CORPUSCULAR VOLUME 80.8 fL (75.5-95.3); MONOCYTES # (AUTO) 0.4 K/uL (2.0-10.0); MONOCYTES % (AUTO) 3.8 % (0.0-11.0); NEUTROPHILS % (AUTO) 84.7 % (38.5-71.5); PLATELET COUNT (AUTO) 425 K/uL (179-408); RED BLOOD CELL COUNT(AUTO) 4.42 MIL/uL (3.63-4.92); WHITE BLOOD COUNT (AUTO) 10.6 K/uL (3.8-11.8)
[2018-06-09 06:24] LABS: CARBON DIOXIDE 24 mmol/L (21-32); CHLORIDE 106 mmol/L (98-107); CHOLESTEROL 111 mg/dL (<200); CREATININE 0.7 mg/dL (0.6-1.3); GLUCOSE 92 mg/dL (74-106); HDL CHOLESTEROL 15 mg/dL (40-60); MAGNESIUM 2.4 mg/dL (1.8-2.4); PHOSPHOROUS 3.7 mg/dL (2.5-4.9); POTASSIUM 3.1 mmol/L (3.5-5.1); TRIGLYCERIDES 120 MG/DL (30-150); UREA NITROGEN, BLOOD 24 mg/dL (7-18)
[2018-06-09] MEDS: LEVOTHYROXINE SODIUM 75 MCG TABLET PO SCH (07:00)
[2018-06-09] MEDS: HYDROCORTISONE 2.5 % RECTAL CREAM 28.35 GM TUBE RC SCH ×2 (08:28→17:21)
--- NOTE | 2018-06-09 08:29 | NUR ---
Patient sleeping in bed, awoken for morning medication. patient refusing, wants to eat. Explained need to wait for swallow eval, patient seems frustrated but agreeable at this time
--- NOTE | 2018-06-09 09:49 | NUR ---
Attempted to call Speech 3x, no answer. Dr Viera paged, regarding diet order.
[2018-06-09] MEDS ORDERED: POTASSIUM CHLORIDE 20 MEQ TAB.PRT.SR PO ONE ×2 (10:00→11:30)
--- NOTE | 2018-06-09 11:29 | NUR ---
NOTIFIED DR RAMOS THIS MORNING REGARDING LOW POTASSIUM LEVEL, ORDERS RECEIVED AND 40MEQ POTASSIUM WAS GIVEN TO PATIENT. DR GARCIA MAKING ROUNDS AND ORDERED 40MEQ OF KDUR, MADE DR GARCIA AWARE THAT 40 MEQ WAS GIVEN ALREADY, DR GARCIA GAVE ORDERS TO GIVE SECOND DOSE. PHARMACY MADE AWARE.
[2018-06-09 11:31] VITALS: BP 97/55
[2018-06-09] MEDS: CEFTRIAXONE 1 G in IV DEXTROSE 5% 50 ML IV SCH (14:40)
[2018-06-09] MEDS: AZITHROMYCIN IV 500 MG in IV DEXTROSE 5% 250 ML IV SCH (15:13)
[2018-06-09 15:38] VITALS: BP 102/65
--- NOTE | 2018-06-09 18:12 | NUR ---
PATIENT A/OX4, DENIED PAIN THROUGHOUT SHIFT, TOLERATED DIET WELL. ABX GIVEN ORDERED, NO FALLS THROUGHOUT SHIFT, CALL LIGHT IN REACH.
[2018-06-09 19:47] VITALS: BP 92/46
[2018-06-09] MEDS: ENOXAPARIN SODIUM 40 MG/0.4 ML DISP.SYRIN SQ SCH (21:00)
[2018-06-09] MEDS: CULTURELLE CAPSULE PO SCH (21:00)
--- NOTE | 2018-06-09 21:00 | NUR ---
Awake alert & oriented no SOB noted. Gen weakness noted, patient requesting to assist her to the bathroom.
[2018-06-10] VITALS: BP 102/57
--- NOTE | 2018-06-10 | NUR ---
Repositioned in bed. Kept comfortable.
[2018-06-10 04:00] VITALS: BP 92/53
[2018-06-10] MEDS: LEVOTHYROXINE SODIUM 75 MCG TABLET PO SCH (05:44)
--- NOTE | 2018-06-10 09:00 | NUR ---
Received pt in bed. A/OX4. No acute distress noted. Denies CP or SOB. All due medications given as ordered and tolerated well. Skin care rendered. All pt needs attended and met. Kept pt. clean and dry. Safety measures maintained. Call light and all frequently used items in place. Will continue to monitor accordingly.
[2018-06-10] MEDS: HYDROCORTISONE 2.5 % RECTAL CREAM 28.35 GM TUBE RC SCH ×2 (09:01→17:07)
[2018-06-10] MEDS: CULTURELLE CAPSULE PO SCH ×2 (09:01→20:07)
[2018-06-10 11:18] VITALS: BP 112/70
[2018-06-10] MEDS: CEFTRIAXONE 1 G in IV DEXTROSE 5% 50 ML IV SCH (13:23)
[2018-06-10 15:07] VITALS: BP 100/59
[2018-06-10] MEDS: AZITHROMYCIN IV 500 MG in IV DEXTROSE 5% 250 ML IV SCH (15:18)
--- NOTE | 2018-06-10 17:58 | NUR ---
End of shift: All due medications administered as ordered and tolerated well. No new skin condition noted. Kept pt. clean and dry. All pt. needs attended and met promptly. Call light and all frequently used items within pt. reach. Will endorse to oncoming shift accordingly.
[2018-06-10 20:00] VITALS: BP 97/57
[2018-06-10] MEDS: ENOXAPARIN SODIUM 40 MG/0.4 ML DISP.SYRIN SQ SCH (20:06)
[2018-06-11 04:49] VITALS: BP 102/58
[2018-06-11] MEDS: LEVOTHYROXINE SODIUM 75 MCG TABLET PO SCH (06:04)
[2018-06-11 06:33] LABS: BASOPHILS % (AUTO) 0.3 % (0.0-2.0); EOSINOPHILS # (AUTO) 0.1 K/uL (0.0-0.7); EOSINOPHILS % (AUTO) 1.3 % (0.0-7.0); HEMATOCRIT 37.1 % (31.2-41.9); HEMOGLOBIN 12.2 g/dL (10.9-14.3); LYMPHOCYTES # (AUTO) 1.4 K/uL (20.0-40.0); LYMPHOCYTES % (AUTO) 16.1 % (20.5-51.5); MEAN CORPUSCULAR HEMOGLOBIN 26.8 uug (24.7-32.8); MEAN CORPUSCULAR HGB CONC 33 g/dL (32.3-35.6); MEAN CORPUSCULAR VOLUME 81.7 fL (75.5-95.3); MONOCYTES # (AUTO) 0.3 K/uL (2.0-10.0); MONOCYTES % (AUTO) 3.3 % (0.0-11.0); NEUTROPHILS # (AUTO) 7.1 K/uL (1.8-8.9); PLATELET COUNT (AUTO) 549 K/uL (179-408); RED BLOOD CELL COUNT(AUTO) 4.54 MIL/uL (3.63-4.92)
--- NOTE | 2018-06-11 06:51 | NUR ---
PATIENT AWAKE IN BED. SLEPT WELL. DENIES ANY PAIN. BED ALARM ON. CALL LIGHT IN REACH. ALL NEEDS ATTENDED. WILL CONTINUE TO MONITOR AND ASSESS.
[2018-06-11 06:52] LABS: CARBON DIOXIDE 25 mmol/L (21-32); CHLORIDE 106 mmol/L (98-107); CREATININE 0.6 mg/dL (0.6-1.3); GLUCOSE 87 mg/dL (74-106); PHOSPHOROUS 2.8 mg/dL (2.5-4.9); POTASSIUM 4.8 mmol/L (3.5-5.1); UREA NITROGEN, BLOOD 14 mg/dL (7-18)
--- NOTE | 2018-06-11 07:22 | NUR ---
patient received sleeping in bed no distress noted. patient with bed in low position, side rails up x2, call light within reach continue to monitor
--- NOTE | 2018-06-11 08:00 | NUR ---
patient pleasant upon approach, patient denies any distress able to verbalize needs, redirected to safety and call light for assistance with adls, educated on fall risk. continue to monitor
[2018-06-11] MEDS: CULTURELLE CAPSULE PO SCH (09:48)
[2018-06-11] MEDS: HYDROCORTISONE 2.5 % RECTAL CREAM 28.35 GM TUBE RC SCH (09:52)
[2018-06-11 11:36] VITALS: BP 96/63
[2018-06-11] MEDS: CEFTRIAXONE 1 G in IV DEXTROSE 5% 50 ML IV SCH (13:38)
[2018-06-11 15:24] VITALS: BP 99/56
--- NOTE | 2018-06-11 15:35 | NUR ---
DISCHARGE NOTE PATIENT DISCHARGED HOME WITH DAUGHTER, PATIENT AND DISCHARGED INSTRUCTED ON FOLLOW UP WITH PCP WITHIN ONE WEEK, PATIENT TO HAVE HOME HEALTH VISIT PATIENT FOR PT EVAL FOR HOME EVAL BASED ON HISTORY OF FALLS, SAFETY CONCERNS, RECOMMENDATIONS BY PT ASSESSMENT DONE AT [place], [facility] TO BE DETERMINED BY PATIENTS INSURANCE PROVIDED [facility]. PATIENT INSTRUCTED ON MEDS ON DISCHARGE, [facility] PHARMACIST AT SIDE EDUCATING DAUGHTER, VERBALIZED UNDERSTANDING, PATIENT IV LINE REMOVED AND ID BAND. QUESTIONS AND CONCERNS ADDRESSED. DISCHARGED IN STABLE CONDITION
== END 2018-06-11 15:35 | disposition home health service (06) | DRG 177 ==
LOC: ER 12:01 → TELE 15:10 → MED 06-10 14:38
PROVIDERS: ADMIT Internal Medicine; ATTEND Internal Medicine
DX: J15.6 Pneumonia due to other Gram-negative bacteria (principal); E43 Unspecified severe protein-calorie malnutrition; Z68.1 Body mass index [BMI] 19.9 or less, adult; E03.9 Hypothyroidism, unspecified; Z79.890 Hormone replacement therapy; M06.9 Rheumatoid arthritis, unspecified; Z86.711 Personal history of pulmonary embolism; Z86.19 Personal history of other infectious and parasitic diseases; I25.10 Atherosclerotic heart disease of native coronary artery without angina pectoris
CPT/HCPCS: 36415; 70030-TC; 70450; 71045; 83605; 83735; 84100; 85025; 85730; 87040; 87086; 92526; 92610; 93005; A4663; C1758; G0378; J0456; J0696; J1650; J3490; J7030; J7040; J7060